=== PATIENT | female | born 1990 | race Two or more races ===

== ENCOUNTER 2020-10-01 21:02 | Emergency (ER) | payer BC, OTHER ==
[~2020-10-01] VITALS: Ht 162.6 cm; Wt 59.0 kg
[2020-10-01] MEDS ORDERED: FAMOTIDINE (10MG/ML) 2ML VL IV ONE (21:45)
[2020-10-01] MEDS ORDERED: SODIUM CHLORIDE 0.9% 1,000 ML IV ONE (21:45)
[2020-10-01] MEDS ORDERED: LORazepam 2MG/ML-1ML VIAL IV ONE (21:45)
[2020-10-01] MEDS ORDERED: KETOROLAC TROMETH 30 MG/ML 1ML VIAL IV ONE (21:45)
[2020-10-01 22:07] LABS: Basophils # (auto) 0 10 ^3/uL (0-0.2); Basophils % (auto) 0.6 % (0.0-2.0); Eosinophils # (auto) 0 10 ^3/uL (0-0.8); Eosinophils % (auto) 0.5 % (0.0-7.0); Hematocrit 37.3 % (36.0-46.0); Lymphocytes # (auto) 0.8 10 ^3/uL (0.4-5.4); Lymphocytes % (auto) 18.6 % (10.0-50.0); Mean Corpuscular Hemoglobin 32.2 pg (28.0-32.0); Mean Corpuscular Hgb Conc. 34.7 g/dL (32.0-36.0); Mean Corpuscular Volume 92.8 fL (80.0-100.0); Monocytes # (auto) 0.2 10 ^3/uL (0-1.3); Monocytes % (auto) 4.7 % (0.0-12.0); Neutrophils # (auto) 3.1 10 ^3/uL (1.6-8.6); Neutrophils % (auto) 75.6 % (37.0-80.0); Red Blood Cells 4.02 10^6/uL (4.0-5.20); White Blood Cell 4.1 10^3/uL (4.4-10.8)
[2020-10-01 22:24] LABS: Anion Gap 6 (5-15); Blood Urea Nitrogen 9 mg/dL (7-18); Calcium 8.7 mg/dL (8.5-10.1); Carbon Dioxide 25 mmol/L (21-32); Chloride 108 mmol/L (98-107); Glucose 111 mg/dL (74-106); Potassium 3.4 mmol/L (3.5-5.1); Sodium 139 mmol/L (136-145)
[2020-10-01 22:30] LABS: Alanine Aminotransferase 20 U/L (13-56); Alkaline Phosphatase 56 U/L (45-117); Aspartate Aminotransferase 16 U/L (15-37); BUN/Creatinine Ratio 14.8; Bilirubin, Total 0.6 mg/dL (0.2-1.0); GFR African American 147 mL/min; GFR Non-African American 122 mL/min; Total Protein 7.6 g/dL (6.4-8.2)
[2020-10-01] MEDS ORDERED: POTASSIUM CHL 20 Meq TABLET PO ONE (22:45)
[2020-10-01] MEDS ORDERED: IOHEXOL 350 MG/ML 100ML IJ ONE (22:48)
[2020-10-02 02:35] VITALS: BP 100/66
== END 2020-10-02 02:44 | disposition still patient (30) ==
LOC: ER 21:04
DX: U07.1 COVID-19 (principal); R00.2 Palpitations; R07.89 Other chest pain; Z86.2 Personal history of diseases of the blood and blood-forming organs and certain disorders involving the immune mechanism
CPT/HCPCS: 36415; 71045; 71275; 80053; 84443; 84484; 84702; 85025; 85379; 93005; 96361; 96374; 96375; 99285; J1885; J2060; J3490; J7030; Q9967

== ENCOUNTER 2020-12-04 22:04 | Emergency (ER) | payer BC ==
[~2020-12-04] VITALS: Ht 162.6 cm; Wt 56.7 kg
[2020-12-05 00:20] LABS: Basophils # (auto) 0 10 ^3/uL (0-0.2); Basophils % (auto) 0.5 % (0.0-2.0); Eosinophils # (auto) 0 10 ^3/uL (0-0.8); Eosinophils % (auto) 0.2 % (0.0-7.0); Hemoglobin 12.4 g/dL (12.2-16.2); Lymphocytes # (auto) 1.3 10 ^3/uL (0.4-5.4); Lymphocytes % (auto) 16.4 % (10.0-50.0); Mean Corpuscular Hemoglobin 32.2 pg (28.0-32.0); Mean Corpuscular Hgb Conc. 34.4 g/dL (32.0-36.0); Mean Corpuscular Volume 93.8 fL (80.0-100.0); Monocytes # (auto) 0.3 10 ^3/uL (0-1.3); Monocytes % (auto) 3.4 % (0.0-12.0); Neutrophils # (auto) 6.3 10 ^3/uL (1.6-8.6); Neutrophils % (auto) 79.5 % (37.0-80.0); Red Blood Cells 3.84 10^6/uL (4.0-5.20); Red Cell Distribution Width 13.5 % (11.8-14.3); White Blood Cell 7.9 10^3/uL (4.4-10.8)
[2020-12-05 00:30] LABS: Alanine Aminotransferase 21 U/L (13-56); Albumin 4.1 g/dL (3.4-5.0); Anion Gap 6 (5-15); Aspartate Aminotransferase 11 U/L (15-37); BUN/Creatinine Ratio 12.9; Blood Urea Nitrogen 8 mg/dL (7-18); Calcium 8.6 mg/dL (8.5-10.1); Carbon Dioxide 26 mmol/L (21-32); Chloride 107 mmol/L (98-107); GFR African American 144 mL/min; GFR Non-African American 119 mL/min; Glucose 99 mg/dL (74-106); Potassium 3.5 mmol/L (3.5-5.1); Sodium 139 mmol/L (136-145)
[2020-12-05 00:34] LABS: Alkaline Phosphatase 54 U/L (45-117); Bilirubin, Total 0.9 mg/dL (0.2-1.0); Total Protein 7.7 g/dL (6.4-8.2)
[2020-12-05 02:11] VITALS: BP 142/85
== END 2020-12-05 02:16 | disposition home or self-care (01) ==
LOC: EDBD 22:04 → ER 22:06
DX: F41.9 Anxiety disorder, unspecified (principal); R00.2 Palpitations; R42 Dizziness and giddiness
CPT/HCPCS: 36415; 71045; 80053; 84484; 84702; 85025; 93005

== ENCOUNTER 2021-01-18 08:51 | Emergency (ER) | payer BC ==
[~2021-01-18] VITALS: Ht 162.6 cm; Wt 56.2 kg
[2021-01-18 08:54] VITALS: BP 122/78
[2021-01-18] MEDS ORDERED: SODIUM CHLORIDE 0.9% 1,000 ML IV ONE ×2 (09:30)
[2021-01-18 09:38] LABS: Basophils # (auto) 0 10 ^3/uL (0-0.2); Basophils % (auto) 0.9 % (0.0-2.0); Eosinophils # (auto) 0 10 ^3/uL (0-0.8); Eosinophils % (auto) 0.5 % (0.0-7.0); Lymphocytes # (auto) 0.7 10 ^3/uL (0.4-5.4); Lymphocytes % (auto) 16.6 % (10.0-50.0); Mean Corpuscular Hemoglobin 30.9 pg (28.0-32.0); Mean Corpuscular Hgb Conc. 33.3 g/dL (32.0-36.0); Mean Corpuscular Volume 92.9 fL (80.0-100.0); Monocytes # (auto) 0.1 10 ^3/uL (0-1.3); Monocytes % (auto) 3.1 % (0.0-12.0); Neutrophils # (auto) 3.4 10 ^3/uL (1.6-8.6); Neutrophils % (auto) 78.9 % (37.0-80.0); Red Blood Cells 3.88 10^6/uL (4.0-5.20); Red Cell Distribution Width 13.6 % (11.8-14.3); White Blood Cell 4.3 10^3/uL (4.4-10.8)
[2021-01-18 10:05] LABS: Albumin 4.5 g/dL (3.4-5.0); Calcium 8.8 mg/dL (8.5-10.1); Potassium 4.3 mmol/L (3.5-5.1)
[2021-01-18 10:09] LABS: BUN/Creatinine Ratio 11.3; Bilirubin, Total 0.9 mg/dL (0.2-1.0); Total Protein 7.6 g/dL (6.4-8.2)
== END 2021-01-18 12:35 | disposition home or self-care (01) ==
LOC: ER 08:51
DX: R19.7 Diarrhea, unspecified (principal)
CPT/HCPCS: 36415; 80053; 84702; 85025; 96360; 99283; J7030

== ENCOUNTER 2021-01-22 18:30 | Emergency (ER) | payer BC ==
[~2021-01-22] VITALS: Ht 162.6 cm; Wt 54.4 kg
[2021-01-22 19:17] LABS: Urine WBC None Seen /hpf (0 - 5)
[2021-01-22 19:48] LABS: Urine Bacteria NONE SEEN /hpf (None Seen); Urine Blood Negative /uL (Negative); Urine Specific Gravity 1.004 (1.001-1.035)
[2021-01-22 21:04] LABS: Calcium 8.9 mg/dL (8.5-10.1); Potassium 3.8 mmol/L (3.5-5.1)
[2021-01-22 21:05] LABS: Hemoglobin 12.6 g/dL (12.2-16.2)
[2021-01-22 21:07] LABS: BUN/Creatinine Ratio 14.3; Bilirubin, Total 1.1 mg/dL (0.2-1.0); Total Protein 8.6 g/dL (6.4-8.2)
[2021-01-22 21:35] LABS: Basophils # (auto) 0 10 ^3/uL (0-0.2); Basophils % (auto) 0.7 % (0.0-2.0); Eosinophils # (auto) 0 10 ^3/uL (0-0.8); Eosinophils % (auto) 0.2 % (0.0-7.0); Hematocrit 37.8 % (36.0-46.0); Lymphocytes # (auto) 0.9 10 ^3/uL (0.4-5.4); Lymphocytes % (auto) 16.7 % (10.0-50.0); Mean Corpuscular Hemoglobin 30.8 pg (28.0-32.0); Mean Corpuscular Hgb Conc. 33.4 g/dL (32.0-36.0); Mean Corpuscular Volume 92.2 fL (80.0-100.0); Monocytes # (auto) 0.2 10 ^3/uL (0-1.3); Monocytes % (auto) 3.7 % (0.0-12.0); Neutrophils # (auto) 4.1 10 ^3/uL (1.6-8.6); Neutrophils % (auto) 78.7 % (37.0-80.0); Nucleated Red Blood Cells % 0.2 %; Red Cell Distribution Width 13.6 % (11.8-14.3); White Blood Cell 5.2 10^3/uL (4.4-10.8)
[2021-01-23 05:31] VITALS: BP 123/85
== END 2021-01-23 05:34 | disposition home or self-care (01) ==
LOC: ER 18:32
DX: M35.89 Other specified systemic involvement of connective tissue (principal); R42 Dizziness and giddiness; Z32.02 Encounter for pregnancy test, result negative
CPT/HCPCS: 36415; 80053; 81001; 81025; 83605; 85025; 87040; 93005

== ENCOUNTER 2024-09-23 21:10 | Emergency (ER) | payer BC ==
[~2024-09-23] VITALS: Ht 162.6 cm; Wt 67.4 kg
[2024-09-23] MEDS: ACETAMINOPHEN 325 MG TAB PO ONE (00:18)
--- NOTE | 2024-09-23 21:42 | ECG ---
[facility] Test Date: 2024-09-23 Test Time: 21:20:54 Pat Name: TIM RIOS Department: Room: Gender: F Switch Inspector: TOMEKA : 1990 Requested By: NIKI VELAZQUEZ Order Number: [id number] Reading MD: Tico Taveras Measurements Intervals [place] Rate: 83 P: 52 PA: 145 QRS: 64 QRSD: 95 T: 55 QT: 373 QTc: 439 Interpretive Statements Sinus rhythm Electronically Signed On 09-27-2024 22:47:16 PDT by Tico Taveras Please click the below link to view image of tracing.
--- NOTE | 2024-09-23 21:47 | ED.PDOC ---
History of Present Illness HPI Comments 34-year-old female who came to ER for chest pains. Patient does have history of thyroid disease, pots syndrome, and SVTs. Patient currently being managed at [facility]. States since 2020, has been experiencing episodes of chest pains, palpitations, shortness a breath, dizziness, diaphoresis, nausea, numbness, tingling, and weakness/numbness over the left side of your her body. Said symptoms, appeared again for the past week, persistent, prompting patient to come to the ER. REVIEW OF SYSTEMS: No fever, no chills, or fatigue HEENT: No sore throat, no earache, no congestion, no neck pain. Cardiac: (+) chest pain. (+) palpitations. Lungs: (+) shortness of breath, no cough. GI: (+) nausea, no vomiting, no diarrhea, no constipation, no abdominal pain : No dysuria, frequency, or urgency. No hematuria. Musculoskeletal: No joint pain , no joint swelling, no extremity edema. Skin: No rash, no itching. Neuro: No headache, (+) dizziness, (+) weakness Physical exam General: Awake, alert and oriented. No acute distress. Skin: Skin in warm, dry and intact. Appropriate color for ethnicity. Nailbeds pink with no cyanosis. HEENT: The head is normocephalic and atraumatic. Conjunctivae are clear without exudates or hemorrhage. Sclera is non-icteric. EOM are intact. No signs of nystagmus. Eyelids are normal in appearance without swelling or lesions. Oral mucosa is pink and moist Neck: The neck is supple with normal range of motion. No JVD. Cardiac: Heart rate and rhythm are normal. No murmurs, gallops, or rubs are auscultated. . Normal radial pulses. Respiratory: No signs of respiratory distress. Lung sounds are clear in all lobe s bilaterally without rales, rhonchi, or wheezes. Abdominal: Abdomen is soft, non-tender without distention. Bowel sounds are p resent and normoactive in all four quadrants. Extremities: Upper and lower extremities are atraumatic in appearance without de formity or edema. Neurological: The patient is awake, alert and oriented to person, place, and time with normal speech. Speech is clear. There is no facial asymmetry. Normal gait. Strength intact bilaterally. Psychiatric: Appropriate mood and affect. Good judgement and insight. No visual or auditory hallucinations. Chief Complaint: Chest Pain Time Seen by MD: 21:37 Primary Care Provider: BRIAN Carrillo Notes: Nurses Notes Allergies: Coded Allergies: Cephalexin (Verified Allergy, Unknown, 09/23/24) Morphine (Verified Allergy, Unknown, 09/23/24) Nitrofurantoin (Verified Allergy, Unknown, 09/23/24) Home Meds Active Scripts Cyclobenzaprine Hcl (Cyclobenzaprine Hcl) 5 Mg Tab, 1 TAB PO QPM for 5 Days, #5 TAB Prov:NIKI VELAZQUEZ MD 09/24/24 Information Source: Patient Mode of Arrival: Ambulatory Severity: Moderate Timing: Days Duration: Intermittent Past Medical History PAST MEDICAL HISTORY: Anemia, Kidney Stones, Thyroid, UTI'S Past Medical History (Other): POTS syndrome, SVTs Surgical History: BTL, [employer]VIS[employer] History: Denies all [employer] Hx Family History Family History: Reviewed,noncontributory to illness Social History Smoker: Non-Smoker Alcohol: Rarely Drugs: Denies Drug Use Lives In: Home Was a procedure done? Was a procedure done?: No EKG EKG : Pulse Rate (adult): 83 Cardiac Rhythm: NSR Comments No STEMI Differential Dx Considerations may include: Anemia, electrolyte imbalance, thyroid disease, palpitations, anxiety, acute coronary syndrome, CVA, cardiac arrhythmia, other X-Ray, Labs, Meds, VS Vital Signs Date Time Temp Pulse Resp B/P (MAP) Pulse Ox O2 Delivery O2 Flow Rate FiO2 09/24/24 01:20 98.2 77 18 130/83 (99) 97 98.2 09/24/24 00:15 98.3 92 18 123/76 (92) 96 98.3 09/24/24 00:15 92 18 96 Room Air* 0 21 09/23/24 21:47 83 09/23/24 21:20 83 09/23/24 21:10 98.9 98 18 144/98 99 98.9 Lab Test 09/23/24 21:44 09/23/24 21:32 Range/Units Urine Color Colorless Yellow Urine Clarity Clear Clear Urine pH 6.0 5.0-9.0 Urine Specific [place] 1.003 1.001-1.035 Urine Protein Negative Negative Urine Ketones Negative Negative Urine Blood Negative Negative /uL Urine Nitrite Negative Negative Urine Bilirubin Negative Negative Urine Urobilinogen Normal Negative mg/dL Urine Leukocyte Esterase Negative Negative /uL Urine RBC <1 0 - 4 /hpf Urine Microscopic WBC < 1 0-5 /HPF Urine Squamous Epithelial Cells Few <5 /hpf Urine Bacteria Few H None Seen /hpf Urine Glucose Normal Normal mg/dL White Blood Count 6.3 4.4-10.8 10^3/uL Red Blood Count 3.90 L 4.0-5.20 10^6/uL Hemoglobin 12.4 12.2-16.2 g/dL Hematocrit 35.9 L 36.0-46.0 % Mean Corpuscular Volume 92.2 80.0-100.0 fL Mean Corpuscular Hemoglobin 31.8 28.0-32.0 pg Mean Corpuscular Hemoglobin Concent 34.5 32.0-36.0 g/dL Red Cell Distribution Width 13.4 11.8-14.3 % Platelet Count 225 140-450 10^3/uL Mean Platelet Volume 8.0 6.9-10.8 fL Neutrophils (%) (Auto) 70.0 37.0-80.0 % Lymphocytes (%) (Auto) 22.8 10.0-50.0 % Monocytes (%) (Auto) 5.6 0.0-12.0 % Eosinophils (%) (Auto) 0.9 0.0-7.0 % Basophils (%) (Auto) 0.7 0.0-2.0 % Neutrophils # (Auto) 4.4 1.6-8.6 10 ^3/uL Lymphocytes # (Auto) 1.4 0.4-5.4 10 ^3/uL Monocytes # (Auto) 0.4 0-1.3 10 ^3/uL Eosinophils # (Auto) 0.1 0-0.8 10 ^3/uL Basophils # (Auto) 0 0-0.2 10 ^3/uL Nucleated Red Blood Cells 0.0 % Sodium Level 140 136-145 mmol/L Potassium Level 3.6 3.5-5.1 mmol/L Chloride Level 105 98-107 mmol/L Carbon Dioxide Level 27 20-31 mmol/L Anion Gap 8 5-15 Blood Urea Nitrogen 10 9-23 mg/dL Creatinine 0.74 0.550-1.02 mg/dL Glomerular Filtration Rate Calc 108 >90 mL/min BUN/Creatinine Ratio 13.5 10.0-20.0 Serum Glucose 98 74-106 mg/dL Calcium Level 9.2 8.7-10.4 mg/dL Magnesium Level 2.0 1.6-2.6 mg/dL Total Bilirubin 0.8 0.2-1.0 mg/dL Aspartate Amino Transferase (AST) 23 13-40 U/L Alanine Aminotransferase (ALT) 25 7-40 U/L Alkaline Phosphatase 62 46-116 U/L Troponin I High Sensitivity < 3 L </=34 ng/L Total Protein 6.7 5.7-8.2 g/dL Albumin 4.6 3.2-4.8 g/dL Lipase 34 12-53 U/L Thyroid Stimulating Hormone (TSH) 2.59 0.55-4.78 uIU/mL Current Medications Medications (Trade) Dose Ordered Sig/Virgen Route Start Time Stop Time Status Last Admin Ketorolac Tromethamine (Toradol Injection) 30 mg ONCE ONCE IV 09/24/24 00:15 09/24/24 00:16 DC 09/24/24 00:20 Time of 1ST Reevaluation: 21:36 Reevaluation 1ST: Unchanged Patient Education/Counseling: Need For Follow Up Family Education/Counseling: Need For Follow Up SEPSIS Sepsis Screen Physician Orders Chest Xray 1 View (09/23/24 21:33) Electrocardigram (09/23/24 22:40) Electrocardigram (09/24/24 00:40) Urine Bacterial Culture (09/24/24 00:45) Vital Signs Date Time Temp Pulse Resp B/P (MAP) Pulse Ox O2 Delivery O2 Flow Rate FiO2 09/24/24 01:20 98.2 77 18 130/83 (99) 97 98.2 09/24/24 00:15 98.3 92 18 123/76 (92) 96 98.3 09/24/24 00:15 92 18 96 Room Air* 0 21 09/23/24 21:47 83 09/23/24 21:20 83 09/23/24 21:10 98.9 98 18 144/98 99 98.9 Laboratory Tests Test 09/23/24 21:32 White Blood Count 6.3 10^3/uL (4.4-10.8) Medications Medications Dose Ordered Sig/Virgen Route Start Time Stop Time Status Last Admin Dose Admin Ketorolac Tromethamine 30 mg ONCE ONCE IV 09/24/24 00:15 09/24/24 00:16 DC 09/24/24 00:20 Departure 1 Departure Time of Disposition: 00:18 Impression: Primary Impression: Chest pain Additional Impressions: Palpitations Low back pain Abdominal pain Disposition: HOME / SELF CARE / HOMELESS Condition: Stable Additional Instructions: ED DISCHARGE INSTRUCTIONS Instructions: Please read all instructions provided in this packet carefully. Although you have been discharged from the Emergency Department, this does not mean that you have a "clean bill of health". []No definitive diagnosis for your symptoms has been made today. It is possible that you are in the process of developing a serious illness. This is why you must return to the ED without fail if any new or worsening symptoms (especially if your symptoms include chest pain, trouble breathing, abdominal pain, fever, headache, confusion, trouble seeing, or trouble walking) It is also very important that you see a primary care provider (PCP) within the next 3-5 days to follow up. If you are unable to get an appointment, return to the ED for re-evaluation. It is very important that you follow up with your primary care physician (PCP). You can call your insurance company or check your insurance card to find out who your PCP is. Or call [phone] to schedule an appointment with a new primary care provider. Back Pain: Care Instructions Table of Contents Overview How can you care for yourself at home? When should you call for help? Credits Overview In most cases, there isn't a clear cause for back pain. It may be related to problems with muscles and ligaments of the back. It may also be related to problems with the nerves, discs, or bones of the back. Moving, lifting, standing, sitting, or sleeping in an awkward way can strain the back. Arthritis is another cause of back pain. Although it may hurt a lot, back pain usually improves on its own within several weeks. Most people recover in 12 weeks or less. Using self-care, such as ice or heat and light activity (like walking) may help you feel better sooner. Follow-up care is a joya part of your treatment and safety. Be sure to make and go to all appointments, and call your doctor if you are having problems. It's also a good idea to know your test results and keep a list of the medicines you take. How can you care for yourself at home? Sit or lie in positions that are most comfortable and reduce your pain. Try one of these positions when you lie down: Lie on your back with your knees bent and supported by pillows. Lie on the floor with your legs on the seat of a sofa or chair. Lie on your side with your knees and hips bent and a pillow between your legs. Lie on your stomach if it does not make pain worse. Do not sit up in bed, and avoid soft couches and twisted positions. Bed rest can help relieve pain at first, but it delays healing. Avoid bed rest after the first day of back pain. Change positions every 30 minutes. If you must sit for long periods of time, take breaks from sitting. Get up and walk around, or lie in a comfortable position. Try using a heating pad on a low or medium setting for 15 to 20 minutes every 2 or 3 hours. Try a warm shower in place of one session with the heating pad. You can also try an ice pack for 10 to 15 minutes every 2 to 3 hours. Put a thin cloth between the ice pack and your skin. Take pain medicines exactly as directed. If the doctor gave you a prescription medicine for pain, take it as prescribed. If you are not taking a prescription pain medicine, ask your doctor if you can take an [id number]-[id number] medicine. Take short walks several times a day. You can start with 5 to 10 minutes, 3 or 4 times a day, and work up to longer walks. Walk on level surfaces and avoid hills and stairs until your back is better. Return to work and other activities as soon as you can. Continued rest without activity is usually not good for your back. To prevent future back pain, do exercises to stretch and strengthen your back and stomach. Learn how to use good posture, safe lifting techniques, and proper body mechanics. When should you call for help? Call your doctor now or seek immediate medical care if: You have new or worsening numbness in your legs. You have new or worsening weakness in your legs. (This could make it hard to stand up.) You lose control of your bladder or bowels. Watch closely for changes in your health, and be sure to contact your doctor if: You have a fever, lose weight, or don't feel well. You do not get better as expected. Credits for Back Pain: Care Instructions Current as of: August 26, 2022 Author: Uriah [employer], [employer] Staff Clinical Review Board All [employer] education is reviewed by a team that includes physicians, nurses, advanced practitioners, registered dieticians, and other healthcare professionals. Abdominal Pain: Care Instructions Overview Abdominal pain has many possible causes. Some aren't serious and get better on their own in a few days. Others need more testing and treatment. If your pain continues or gets worse, you need to be rechecked and may need more tests to fin d out what is wrong. You may need surgery to correct the problem. Don't ignore new symptoms, such as fever, nausea and vomiting, urination problems, pain that gets worse, and dizziness. These may be signs of a more serious problem. If you are not getting better, you may need more tests or treatment. The doctor has checked you carefully, but problems can develop later. If you notice any problems or new symptoms, get medical treatment right away. Follow-up care is a joya part of your treatment and safety. Be sure to make and go to all appointments, and call your doctor if you are having problems. It's also a good idea to know your test results and keep a list of the medicines you take. How can you care for yourself at home? Rest until you feel better. To prevent dehydration, drink plenty of fluids. Choose water and other clear liquids until you feel better. If you have kidney, heart, or liver disease and have to limit fluids, talk with your doctor before you increase the amount of fluids you drink. When you feel like eating, start with small amounts. Do not have alcohol, caffeine, or spicy, hot, or high-fat foods for a day or two. Avoid anti-inflammatory medicines such as aspirin, ibuprofen (Advil, Motrin), and naproxen (Aleve). These can cause stomach upset. Talk to your doctor if you take daily aspirin for another health problem. When should you call for help? Call 911 anytime you think you may need emergency care. For example, call if: You passed out (lost consciousness). You pass maroon or very bloody stools. You vomit blood or what looks like coffee grounds. You have severe belly pain. Call your doctor now or seek immediate medical care if: Your pain gets worse, especially if it becomes focused in one area of your belly. You have a new or higher fever. Your stools are black and look like tar, or they have streaks of blood. You have unexpected vaginal bleeding. You have symptoms of a urinary tract infection. These may include: Pain when you urinate. Urinating more often than usual. Blood in your urine. You are dizzy or lightheaded, or you feel like you may faint. Watch closely for changes in your health, and be sure to contact your doctor if: You are not getting better as expected. Credits for Abdominal Pain: Care Instructions Current as of: November 28, 2022 Author: [employer] Staff Clinical Review Board All [employer] education is reviewed by a team that includes physicians, nurses, advanced practitioners, registered dieticians, and other healthcare professionals. WHY YOU NEED A PCP: Establishing and regularly seeing a PCP and undergoing routine screenings are vital for maintaining good health. Your PCP acts as your main healthcare partner, helping you stay healthy, manage chronic conditions, and detect potential problems early. Routine screenings, like mammograms or colonoscopies, can catch diseases like cancer early when treatment is often more effective. A screening test is like a quick check-up your doctor does to see if there are any problems starting in your body, even when you feel okay, so they can find them early when they're easier to fix. Why Establish a Relationship with a Primary Care Physician (PCP)? Preventive Care: Your PCP focuses on preventing illness through regular checkups, vaccinations, and health advice tailored to your needs. Chronic Disease Management: If you have a chronic condition, like diabetes or high blood pressure, your PCP can help you manage it effectively through monitoring, medication management, and lifestyle recommendations. Early Detection: Regular visits allow your PCP to track your health over time, identify subtle changes, and order necessary screenings or tests to catch potential problems early. Trusted Resource: Your PCP gets to know you, your medical history, and your concerns, making them a trusted resource for all your health-related questions. Referrals: If you need specialized care, your PCP will refer you to the appropriate specialists and help coordinate your care. Continuity of Care: Your PCP ensures that your healthcare is coordinated, especially after hospital stays or visits to other specialists. Why are Routine Screenings Important? Early Detection: Many serious illnesses like cancer, diabetes and heart disease, can be treated more successfully when detected early. Screenings like lab tests, blood pressure checks, mammograms, colonoscopies, and Pap smears are designed to catch these diseases early. Preventing Disease: Some screenings can actually help prevent diseases from developing. Peace of Mind: Knowing that you are up-to-date on your screenings can provide peace of mind and reduce anxiety about potential health problems. In summary, establishing a relationship with a primary care physician and following their recommendations for routine screenings is important for staying healthy and managing your health effectively. It's an investment in your well- being that can pay off in the long run. CHEST PAIN EDUCATION There are many things that can cause chest pain. Some are not serious and will get better on their own in a few days. But some kinds of chest pain need more testing and treatment. Your doctor may have recommended a follow-up visit in the next few days. If you are not getting better, you may need more tests or treatment. Even though your doctor has released you, you still need to watch for any problems. The doctor carefully checked you, but sometimes problems can develop later. If you have new symptoms or if your symptoms do not get better, get medical care right away. If you have worse or different chest pain or pressure that lasts more than 5 minutes or you passed out (lost consciousness), call 911 or seek other emergency help right away. A medical visit is only one step in your treatment. Even if you feel better, you still need to do what your doctor recommends, such as going to all suggested follow-up appointments and taking medicines exactly as directed. This will help you recover and help prevent future problems. How can you care for yourself at home? Rest until you feel better. Take your medicine exactly as prescribed. Call your doctor if you think you are having a problem with your medicine. Do not drive after taking a prescription pain medicine. When should you call for help? Call 911 if: You passed out (lost consciousness). You have severe difficulty breathing. You have symptoms of a heart attack. These may include: Chest pain or pressure, or a strange feeling in your chest. Sweating. Shortness of breath. Nausea or vomiting. Pain, pressure, or a strange feeling in your back, neck, jaw, or upper belly or in one or both shoulders or arms. Lightheadedness or sudden weakness. A fast or irregular heartbeat. After you call 911, the evaporator operator molasses may tell you to chew 1 adult-strength or 2 to 4 low-dose aspirin. Wait for an ambulance. Do not try to drive yourself. Call your doctor now or seek immediate medical care if: You have any trouble breathing. You have new or different chest pain. You are dizzy or lightheaded, or you feel like you may faint. Watch closely for changes in your health, and be sure to contact your doctor if you do not get better as expected. Current as of: September 10, 2023 Author: [employer] Staff? e-Prescriptions Cyclobenzaprine Hcl (Cyclobenzaprine Hcl) 5 Mg Tab 1 TAB PO QPM for 5 Days, #5 TAB Prov: NIKI VELAZQUEZ MD 09/24/24 Comments MDM: 34-year-old female who presents with chest pain and palpitations, abdominal pain, low back pain. EKG negative for signs of ischemia. High sensitivity troponin negative. CXR shows no acute process. With the diagnostic results not urgently actionable. Presentation not suggestive of acute coronary syndrome, pulmonary embolism or aortic dissection. Patient improved at time of discharge. Patient has not been hypoxic, in respiratory distress or dyspneic during the ED observation. Patient able to ambulate without difficulty. Patient felt stable for discharge to follow up with PCP promptly. Patient advised to return to the ED with any new, worsening or concerning symptoms or inability to follow up with PCP. --------- The following tests were ordered, and results were reviewed by me: (See diagnostic results section) The following test were independently interpreted by me: EKG Additional information was gathered from interviewing the following independent historians: Patient's significant other at bedside I reviewed and agreed with the following test results read by other providers: N/A I discussed results with patient Decision regarding hospitalization or escalation of hospital level of care: Risks and benefits of admission for further treatment of patient's condition was considered however due to patient's stable condition patient will be discharged to follow up closely or return to care for worsening of condition or inability to follow up. Critical Care Note Critical Care Time?: No Stability Stability form required: No Heart Score Heart Score: Heart Score Response (Comments) Value History Slightly Suspicious 0 EKG Normal 0 Age <45 0 Risk Factors 1 or 2 risk factors 1 Troponin Normal limit 0 Total 1 I personally scribed for NIKI VELAZQUEZ MD ([email or web address]) on 09/23/24 at 21:47. Electronically submitted by Dwigth Pfeiffer ([facility]). NIKI VELAZQUEZ MD Sep 23, 2024 21:47
[2024-09-23 21:55] LABS: Hematocrit 35.9 % (36.0-46.0); Hemoglobin 12.4 g/dL (12.2-16.2); Mean Corpuscular Hemoglobin 31.8 pg (28.0-32.0); Mean Corpuscular Volume 92.2 fL (80.0-100.0); Nucleated Red Blood Cells % 0.0 %
[2024-09-23 22:25] LABS: Alanine Aminotransferase 25 U/L (7-40); Albumin 4.6 g/dL (3.2-4.8); Alkaline Phosphatase 62 U/L (46-116); Anion Gap 8 (5-15); BUN/Creatinine Ratio 13.5 (10.0-20.0); Bilirubin, Total 0.8 mg/dL (0.2-1.0); Blood Urea Nitrogen 10 mg/dL (9-23); Calcium 9.2 mg/dL (8.7-10.4); Carbon Dioxide 27 mmol/L (20-31); Chloride 105 mmol/L (98-107); Glucose 98 mg/dL (74-106); Lipase 34 U/L (12-53); Magnesium 2.0 mg/dL (1.6-2.6); Potassium 3.6 mmol/L (3.5-5.1); Sodium 140 mmol/L (136-145); Total Protein 6.7 g/dL (5.7-8.2)
[2024-09-23 22:27] LABS: Urine Protein, UAD Negative (Negative)
--- NOTE | 2024-09-24 00:10 | DVH ---
EXAM: XY CHEST XRAY 1 VIEW CLINICAL HISTORY: palpitations TECHNIQUE: Single AP view of the chest WID: COMPARISON: CHEST XRAY 1 VIEW on DOS: 12/04/20 FINDINGS: Lines and tubes: None Chest: The heart size and pulmonary vasculature is within normal limits. No pleural effusion, pneumothorax, or consolidation. The osseous structures are grossly intact. IMPRESSION: No acute cardiopulmonary abnormality.
[2024-09-24 00:15] VITALS: PULSE 92; RESP 18; O2SAT 96
[2024-09-24] MEDS: KETOROLAC TROMETH 30 MG/ML 1ML VIAL IV ONE (00:20)
[2024-09-24] MEDS ORDERED: CYCL-837 PO (00:54)
[2024-09-24 01:20] VITALS: BP 130/83; PULSE 77; RESP 18; TEMP 98.2; O2SAT 97
== END 2024-09-24 01:00 | disposition home or self-care (01) ==
LOC: ER 21:10
DX: R07.89 Other chest pain (principal); R00.2 Palpitations; M54.50 Low back pain, unspecified; R10.9 Unspecified abdominal pain; Z98.51 Tubal ligation status; Z88.5 Allergy status to narcotic agent; Z88.1 Allergy status to other antibiotic agents; Z79.899 Other long term (current) drug therapy
CPT/HCPCS: 36415; 71045; 80053; 81001; 83690; 83735; 84443; 84484; 85025; 87086; 93005; 96374; 99285; J1885